=== PATIENT | female | born 2000 | race Caucasian/White ===

== ENCOUNTER 2018-01-29 00:34 | Emergency (ER) | payer OTHER ==
[~2018-01-29] VITALS: Ht 167.6 cm; Wt 79.5 kg
[~2018-01-29 00:34] MED LIST: PRED10TA PO
[2018-01-29 00:36] VITALS: BP 105/72
[2018-01-29 00:54] LABS: URINE HCG NEGATIVE (NEG)
[2018-01-29 00:58] LABS: CLARITY,URINE CLOUDY (Clear); COLOR,URINE YELLOW (Yellow); GLUCOSE, URINE NEGATIVE (Neg); KETONES,URINE NEGATIVE (Neg); LEUKOCYTE ESTERASE ,URINE LARGE (Neg); NITRITES, URINE NEGATIVE (Neg); OCCULT BLOOD,URINE LARGE (Neg); PROTEIN,URINE 100 mg/dl (Neg); UROBILINOGEN,URINE 0.2 E.U/dL (0.2-1.0)
[2018-01-29 01:14] LABS: UA COLLECTION TYPE CLN CATCH MIDSTREAM
[2018-01-29 01:15] LABS: BACTERIA,URINE 3+ /HPF (Neg); RBC,URINE TNTC /HPF (0-2); SQUAMOUS EPITHELIAL CELL,UR FEW /LPF (FEW); WBC,URINE TNTC /HPF (0-4)
[2018-01-29] MEDS ORDERED: nitrofuran/nitrofuran macrocrysal 100 MG capsule PO ONE (01:20)
[2018-01-29] MEDS ORDERED: NITR100C6 PO (01:22)
== END 2018-01-29 01:42 | disposition home or self-care (01) ==
LOC: ER 00:35
DX: N39.0 Urinary tract infection, site not specified (principal); R10.31 Right lower quadrant pain; R10.32 Left lower quadrant pain; Z79.899 Other long term (current) drug therapy
CPT/HCPCS: 81001; 81025; 87088; 99284

== ENCOUNTER 2018-04-06 16:42 | Emergency (ER) | payer OTHER ==
[~2018-04-06] VITALS: Ht 167.6 cm; Wt 77.0 kg
[~2018-04-06 16:42] MED LIST changes: +NITR100C6 PO
[2018-04-06 16:45] VITALS: BP 131/82
== END 2018-04-06 17:22 | disposition home or self-care (01) ==
LOC: ER 16:43
DX: R59.0 Localized enlarged lymph nodes (principal); M79.621 Pain in right upper arm; L98.8 Other specified disorders of the skin and subcutaneous tissue; Z79.899 Other long term (current) drug therapy
CPT/HCPCS: 10060; 99283

== ENCOUNTER 2018-04-08 13:55 | Emergency (ER) | payer OTHER ==
[~2018-04-08] VITALS: Ht 167.6 cm; Wt 67.8 kg
[2018-04-08 14:03] VITALS: BP 122/75
[2018-04-08] MEDS ORDERED: SULF1TAB49 PO (15:18)
== END 2018-04-08 16:02 | disposition home or self-care (01) ==
LOC: ER 13:55
DX: L03.111 Cellulitis of right axilla (principal); L02.411 Cutaneous abscess of right axilla; Z79.899 Other long term (current) drug therapy
CPT/HCPCS: 99283

== ENCOUNTER 2019-01-26 20:30 | Emergency (ER) | payer OTHER ==
[~2019-01-26] VITALS: Ht 167.6 cm; Wt 78.5 kg
[2019-01-26] MEDS ORDERED: LIDOcaine Viscous 15ml cup PO ONE (21:05)
[2019-01-26] MEDS ORDERED: DOXY100C43 PO (21:48)
[2019-01-26 22:03] VITALS: BP 113/73
== END 2019-01-26 22:07 | disposition home or self-care (01) ==
LOC: ER 20:31
DX: J34.0 Abscess, furuncle and carbuncle of nose (principal); F17.200 Nicotine dependence, unspecified, uncomplicated; Z79.899 Other long term (current) drug therapy
CPT/HCPCS: 10160; 87070; 99283; 99284

== ENCOUNTER 2019-08-12 10:25 | Outpatient (CLI) | payer OTHER | END 2019-08-12 23:59 | disposition home or self-care (01) | LOC: RAD 10:25 | PROVIDERS: ATTEND Family Medicine | DX: M43.22 Fusion of spine, cervical region (principal) | CPT/HCPCS: 71046; 72052; 72070 ==

== ENCOUNTER 2021-07-04 13:31 | Emergency (ER) | payer BC, OTHER ==
[~2021-07-04] VITALS: Ht 167.6 cm; Wt 86.0 kg
[2021-07-04 13:35] VITALS: BP 113/68
[2021-07-04] MEDS ORDERED: CIPR-259 PO (14:25)
== END 2021-07-04 14:32 | disposition home or self-care (01) ==
LOC: ER 13:31
DX: H60.92 Unspecified otitis externa, left ear (principal); L29.9 Pruritus, unspecified; Z86.19 Personal history of other infectious and parasitic diseases; Z72.89 Other problems related to lifestyle; Z79.2 Long term (current) use of antibiotics; Z79.899 Other long term (current) drug therapy; Z91.048 Other nonmedicinal substance allergy status
CPT/HCPCS: 99283

== ENCOUNTER 2023-06-16 13:39 | Outpatient (CLI) | payer BC ==
[2023-06-16 14:20] LABS: BASOPHILS % (AUTO) 0.7 % (0-1); EOSINOPHILS # (AUTO) 0.1 X10'3 (0-0.9); EOSINOPHILS % (AUTO) 1.5 % (0-6); HEMATOCRIT 40.4 % (35.0-45.0); HEMOGLOBIN 13.6 g/dl (12.0-16.0); MEAN CORPUSCULAR HGB CONC 33.5 g/dL (33.0-36.5); MEAN CORPUSCULAR VOLUME 86.5 FL (78-98); MEAN PLATELET VOLUME 6.8 FL (7.4-10.4); MONOCYTES # (AUTO) 0.5 X10'3 (0-0.9); MONOCYTES % (AUTO) 7.7 % (2-12); NEUTROPHILS # (AUTO) 3.3 X10'3 (1.8-7.7); NEUTROPHILS % (AUTO) 56.1 % (42-75); PLATELET COUNT 344 X10'3 (140-440); RED BLOOD COUNT 4.67 X10'6 (4.20-5.60); RED CELL DISTRIBUTION WIDTH 13.2 % (11.5-14.5)
[2023-06-16 14:57] LABS: ALANINE AMINOTRANSFERASE 35 U/L (12-78); ALBUMIN 3.9 G/DL (3.4-5.0); ALBUMIN/GLOBULIN RATIO 0.9 (1.1-1.5); ALKALINE PHOSPHATASE 97 IU/L (46-116); ANION GAP 7 (8-16); ASPARTATE AMINO TRANSFERASE 20 U/L (10-37); BILIRUBIN,TOTAL 0.3 MG/DL (0.1-1.0); BLOOD UREA NITROGEN 7 MG/DL (7-18); BUN/CREATININE RATIO 10.8 (10.0-20.0); CALCIUM 9.1 MG/DL (8.5-10.1); CHLORIDE 103 MMOL/L (99-107); CHOL/HDL RATIO 4.3 (0.00-4.99); CHOLESTEROL 191 MG/DL (0-200); CREATININE 0.65 MG/DL (0.40-0.90); GLUCOSE 85 MG/DL (70-104); HDL CHOLESTEROL 44 MG/DL (35-60); LDL CHOLESTEROL 131 MG/DL (50-100); POTASSIUM 3.8 MMOL/L (3.5-5.1); SODIUM 138 MMOL/L (135-145); THYROID STIMULATING HORMONE 1.22 ulU/ml (0.34-4.50); TOTAL CARBON DIOXIDE 27.8 MMOL/L (24-32); TOTAL PROTEIN 8.1 G/DL (6.4-8.2); TRIGLYCERIDES 50 MG/DL (20-135); eGFR > 90 ML/MIN
== END 2023-06-16 23:59 | disposition home or self-care (01) ==
LOC: LAB 13:39
PROVIDERS: ATTEND Student in an Organized Health Care Education/Training Program
DX: Z00.00 Encounter for general adult medical examination without abnormal findings (principal); E78.5 Hyperlipidemia, unspecified; M54.2 Cervicalgia; R87.610 Atypical squamous cells of undetermined significance on cytologic smear of cervix (ASC-US); F32.9 Major depressive disorder, single episode, unspecified; F17.290 Nicotine dependence, other tobacco product, uncomplicated; Z83.49 Family history of other endocrine, nutritional and metabolic diseases
CPT/HCPCS: 36415; 80053; 80061; 82306; 84436; 84443; 84480; 85025